=== PATIENT | female | born 1980 | race Caucasian/White ===

== ENCOUNTER 2018-07-11 19:34 | Emergency (ER) | payer MEDICAID ==
[~2018-07-11] VITALS: Ht 172.7 cm; Wt 57.3 kg
[2018-07-11 22:29] VITALS: BP 108/68
== END 2018-07-11 22:53 | disposition left against medical advice (07) ==
LOC: ER 19:35
DX: J98.8 Other specified respiratory disorders (principal); Z88.6 Allergy status to analgesic agent
CPT/HCPCS: 99283

== ENCOUNTER 2019-03-03 14:20 | Emergency (ER) | payer MEDICAID ==
[~2019-03-03] VITALS: Ht 172.7 cm; Wt 59.1 kg
[2019-03-03] MEDS ORDERED: LIDOcaine 1% w/epiNEPHrine 1:200,000 30ml vial SQ ONE (14:45)
[2019-03-03] MEDS ORDERED: LORazepam 2 mg/ml vial IM ONE (14:55)
[2019-03-03] MEDS ORDERED: TETanus/Pertussis (Acell)/Diphther VAC/PF (Tdap-Adult) 0.5ml syringe IM ONE (15:45)
[2019-03-03] MEDS ORDERED: bacitracin 15gm ointment TP ONE (15:45)
[2019-03-03] MEDS ORDERED: ceFAZolin 1GM/D5W- ADD-VANTAGE 50 ML IV ONE (15:55)
[2019-03-03] MEDS ORDERED: CLIN150C2 PO (16:21)
[2019-03-03] MEDS: propofol 1000mg/100ml bottle 100 ML IV PRN ×2 (17:24→17:31)
[2019-03-03 17:59] VITALS: BP 130/80
== END 2019-03-03 18:01 | disposition home or self-care (01) ==
LOC: ER 14:20
DX: S91.012A Laceration without foreign body, left ankle, initial encounter (principal); Z59.0 Homelessness; Z88.6 Allergy status to analgesic agent; W45.8XXA Other foreign body or object entering through skin, initial encounter; Y93.89 Activity, other specified; Y92.89 Other specified places as the place of occurrence of the external cause; Y99.9 Unspecified external cause status
CPT/HCPCS: 12002; 73600; 90471; 90715; 94760; 96365; 99152; 99153; 99285; J0690; J2060; J2704; J3490

== ENCOUNTER 2019-12-07 18:33 | Emergency (ER) | payer MEDICAID ==
[~2019-12-07] VITALS: Ht 172.7 cm; Wt 69.3 kg
[2019-12-07 20:43] VITALS: BP 129/73
[2019-12-07] MEDS ORDERED: CEPH250T PO (21:10)
[2019-12-07] MEDS ORDERED: DIPH-423 PO (21:10)
== END 2019-12-07 21:30 | disposition home or self-care (01) ==
LOC: ER 18:34
DX: O99.712 Diseases of the skin and subcutaneous tissue complicating pregnancy, second trimester (principal); L03.211 Cellulitis of face; L23.9 Allergic contact dermatitis, unspecified cause; O99.332 Smoking (tobacco) complicating pregnancy, second trimester; F17.200 Nicotine dependence, unspecified, uncomplicated; Z3A.15 15 weeks gestation of pregnancy; Z59.0 Homelessness; Z88.6 Allergy status to analgesic agent
CPT/HCPCS: 99283

== ENCOUNTER 2020-03-18 22:11 | Emergency (ER) | payer MEDICAID ==
[~2020-03-18] VITALS: Ht 172.7 cm; Wt 78.2 kg
[~2020-03-18 22:11] MED LIST: DIPH-423 PO
[2020-03-19 00:14] VITALS: BP 104/65
== END 2020-03-19 00:16 ==
LOC: ER 22:11
DX: F15.10 Other stimulant abuse, uncomplicated (principal); Z3A.12 12 weeks gestation of pregnancy; Z34.02 Encounter for supervision of normal first pregnancy, second trimester; F17.200 Nicotine dependence, unspecified, uncomplicated; N85.8 Other specified noninflammatory disorders of uterus; Z59.0 Homelessness; Z88.6 Allergy status to analgesic agent; Z79.899 Other long term (current) drug therapy
CPT/HCPCS: 93005; 99283

== ENCOUNTER 2022-09-01 15:28 | Emergency (ER) | payer MEDICAID ==
[~2022-09-01] VITALS: Ht 172.7 cm; Wt 63.0 kg
[2022-09-01 16:02] VITALS: BP 120/79
--- NOTE | 2022-09-01 16:13 | NUR ---
contacted poison control, suggested supportive care, possible resp irritation, could draw CBC, CMP and lactic acid.
[2022-09-02] MEDS ORDERED: PRED20TA PO (20:09)
== END 2022-09-01 18:00 | disposition left against medical advice (07) ==
LOC: ER 15:29
DX: R56.9 Unspecified convulsions (principal); Z53.21 Procedure and treatment not carried out due to patient leaving prior to being seen by health care provider

== ENCOUNTER 2022-09-02 14:42 | Emergency (ER) | payer MEDICAID ==
[~2022-09-02] VITALS: Ht 172.7 cm; Wt 63.0 kg
[2022-09-02 14:44] VITALS: BP 128/86
[2022-09-02] MEDS ORDERED: PRED20TA PO (20:09)
[2022-09-02] MEDS ORDERED: predniSONE 20 mg tablet PO ONE (20:10)
== END 2022-09-02 20:22 | disposition home or self-care (01) ==
LOC: ER 14:42
DX: T27.2XXA Burn of other parts of respiratory tract, initial encounter (principal)
CPT/HCPCS: 71045; 99283; J7512

== ENCOUNTER 2025-01-05 13:49 | Emergency (ER) | payer MEDICAID ==
[~2025-01-05] VITALS: Ht 172.7 cm; Wt 59.2 kg
[2025-01-05 15:09] LABS: BASOPHILS % (AUTO) 0.3 % (0-1); EOSINOPHILS # (AUTO) 0.1 X10'3 (0-0.9); EOSINOPHILS % (AUTO) 1.8 % (0-6); HEMATOCRIT 41.3 % (35.0-45.0); HEMOGLOBIN 13.6 g/dl (12.0-16.0); LYMPHOCYTES # (AUTO) 1.3 X10'3 (1.1-4.8); LYMPHOCYTES % (AUTO) 16.4 % (21-51); MEAN CORPUSCULAR HEMOGLOBIN 30.9 PG (27.0-31.0); MEAN CORPUSCULAR VOLUME 93.6 FL (78-98); MONOCYTES # (AUTO) 0.6 X10'3 (0-0.9); MONOCYTES % (AUTO) 7.7 % (2-12); NEUTROPHILS # (AUTO) 5.9 X10'3 (1.8-7.7); NEUTROPHILS % (AUTO) 73.8 % (42-75); PLATELET COUNT 277 X10'3 (140-440); RED BLOOD COUNT 4.41 X10'6 (4.20-5.60); RED CELL DISTRIBUTION WIDTH 13.1 % (11.5-14.5)
[2025-01-05 15:26] LABS: ALBUMIN 3.3 G/DL (3.4-5.0); ANION GAP 4 (8-16); BLOOD UREA NITROGEN 18 MG/DL (7-18); BUN/CREATININE RATIO 25.7 (10.0-20.0); CALCIUM 8.5 MG/DL (8.5-10.1); CHLORIDE 107 MMOL/L (99-107); GLUCOSE 89 MG/DL (70-104); POTASSIUM 4.5 MMOL/L (3.5-5.1); SODIUM 139 MMOL/L (135-145); TOTAL CARBON DIOXIDE 27.7 MMOL/L (24-32); eCRCL 95 ML/MIN; eGFR 90 ML/MIN
[2025-01-05] MEDS: HYDROcodone/acetaminophen 10/325mg tab PO ONE (16:18)
[2025-01-05] MEDS: ketorolac trometh 30MG/ML vial 30 MG/ML VIAL IM ONE (16:20)
[2025-01-05 16:40] LABS: BASOPHILS % (AUTO) 0.3 % (0-1); EOSINOPHILS # (AUTO) 0.1 X10'3 (0-0.9); EOSINOPHILS % (AUTO) 0.6 % (0-6); HEMOGLOBIN 15.1 g/dl (12.0-16.0); LYMPHOCYTES # (AUTO) 0.8 X10'3 (1.1-4.8); LYMPHOCYTES % (AUTO) 7.2 % (21-51); MEAN CORPUSCULAR HEMOGLOBIN 31.2 PG (27.0-31.0); MEAN CORPUSCULAR HGB CONC 33.5 g/dL (33.0-36.5); MEAN CORPUSCULAR VOLUME 93.3 FL (78-98); MONOCYTES # (AUTO) 0.4 X10'3 (0-0.9); MONOCYTES % (AUTO) 3.8 % (2-12); NEUTROPHILS # (AUTO) 9.9 X10'3 (1.8-7.7); NEUTROPHILS % (AUTO) 88.1 % (42-75); PLATELET COUNT 262 X10'3 (140-440); RED BLOOD COUNT 4.82 X10'6 (4.20-5.60); RED CELL DISTRIBUTION WIDTH 13.1 % (11.5-14.5); WHITE BLOOD COUNT 11.2 X10'3 (4.5-11.0)
[2025-01-05 16:54] LABS: ALANINE AMINOTRANSFERASE 24 U/L (12-78); ALBUMIN 3.4 G/DL (3.4-5.0); ALBUMIN/GLOBULIN RATIO 0.8 (1.1-1.5); ALKALINE PHOSPHATASE 72 IU/L (46-116); ANION GAP 5 (8-16); ASPARTATE AMINO TRANSFERASE 23 U/L (10-37); BLOOD UREA NITROGEN 15 MG/DL (7-18); BUN/CREATININE RATIO 22.7 (10.0-20.0); CALCIUM 8.8 MG/DL (8.5-10.1); CHLORIDE 106 MMOL/L (99-107); CREATININE 0.66 MG/DL (0.40-0.90); GLUCOSE 94 MG/DL (70-104); POTASSIUM 4.3 MMOL/L (3.5-5.1); SODIUM 139 MMOL/L (135-145); TOTAL CARBON DIOXIDE 28.2 MMOL/L (24-32); TOTAL PROTEIN 7.7 G/DL (6.4-8.2); eCRCL 101 ML/MIN; eGFR > 90 ML/MIN
[2025-01-05 17:02] LABS: PRO BRAIN NATRIURETIC PEPTIDE 34 PG/ML (0-125)
[2025-01-05 17:08] LABS: BILIRUBIN,TOTAL 0.3 MG/DL (0.1-1.0)
[2025-01-05] MEDS ORDERED: HYDR-3965 PO (17:18)
[2025-01-05 18:02] VITALS: BP 116/83; PULSE 88; RESP 13; TEMP 97.6; O2SAT 98
== END 2025-01-05 18:07 | disposition home or self-care (01) ==
LOC: ER 13:50
DX: R55 Syncope and collapse (principal); S09.90XA Unspecified injury of head, initial encounter; I10 Essential (primary) hypertension; Z88.6 Allergy status to analgesic agent; X58.XXXA Exposure to other specified factors, initial encounter; Y93.89 Activity, other specified; Y92.89 Other specified places as the place of occurrence of the external cause; Y99.8 Other external cause status
CPT/HCPCS: 36415; 70450; 71045; 72125; 80048; 80053; 82948; 83880; 84484; 85025; 93005; 99285; L0172